=== PATIENT | male | born 1980 | race Caucasian/White ===

== ENCOUNTER 2022-05-28 19:52 | Emergency (ER) | payer MEDICAID ==
[~2022-05-28] VITALS: Ht 172.7 cm; Wt 70.0 kg
[2022-05-28] MEDS ORDERED: ALBUTEROL (0.083%) 2.5MG/3ML NEB HHN STA (20:24)
[2022-05-28] MEDS ORDERED: ALBU6.7H15 INH (21:39)
[2022-05-28 22:18] VITALS: BP 125/66
== END 2022-05-28 22:20 | disposition home or self-care (01) ==
LOC: ER 19:52
DX: J45.901 Unspecified asthma with (acute) exacerbation (principal); I10 Essential (primary) hypertension
CPT/HCPCS: 94640; 99283; Z7610

== ENCOUNTER 2023-10-06 15:46 | Emergency (ER) | payer MEDICAID ==
[~2023-10-06] VITALS: Ht 177.8 cm; Wt 63.0 kg
[~2023-10-06 15:46] MED LIST: ALBU6.7H15 INH
[2023-10-06 16:00] VITALS: BP 140/85; PULSE 85; RESP 16; TEMP 98.4; O2SAT 98
== END 2023-10-06 21:36 | disposition home or self-care (01) ==
LOC: ER 15:46
DX: R06.02 Shortness of breath (principal); J45.909 Unspecified asthma, uncomplicated; Z86.59 Personal history of other mental and behavioral disorders
CPT/HCPCS: 71045; 93005; 99283

== ENCOUNTER 2023-11-26 09:19 | Emergency (ER) | payer MEDICAID ==
[~2023-11-26] VITALS: Ht 170.2 cm; Wt 65.0 kg
[2023-11-26] MEDS ORDERED: ALBU6.7H15 INH (09:31)
[2023-11-26 09:36] VITALS: BP 118/64; PULSE 72; RESP 16; TEMP 98.8; O2SAT 99
== END 2023-11-26 09:44 | disposition home or self-care (01) ==
LOC: ER 09:19
DX: R06.02 Shortness of breath (principal); J45.909 Unspecified asthma, uncomplicated; Z76.0 Encounter for issue of repeat prescription; Z86.59 Personal history of other mental and behavioral disorders
CPT/HCPCS: 99283